=== PATIENT | female | born 1995 | race Caucasian/White ===

== ENCOUNTER 2017-07-12 19:45 | Emergency (ER) | payer SELFPAY ==
[~2017-07-12 19:45] MED LIST: ISOVUE-370 76%-LOCM 1 ML ONE
[2017-07-12 20:32] LABS: Bilirubin Small (Negative); Blood, Urine Trace (Negative); Clarity CLEAR (Clear); Glucose, Urine (Dipstick) Negative (Negative); Leukocyte Small (Negative); Nitrite Negative (Negative); Protein, Urine (Dipstick) Trace mg/dL (Neg-Trace); Specific Gravity, Urine 1.026 (1.002-1.036)
[2017-07-12 20:33] LABS: Bacteria/HPF 1+ HPF (None Seen); Pathc Cast-AUWi Flag 0.81 (0-2.49); Pregnancy Test - Urine (BHCG) Negative (Negative); Pregu Control Background? CLEAR/WHITE (CLR/WHITE); Pregu Control Bar Appear? YES (CONTROL BAR); Specific Gravity 1.026 (1.002-1.036); Squamous Epithelial 0-3 HPF (0-3); WBC/HPF 21-50 HPF (0-3)
[2017-07-12 20:44] LABS: Hyaline Casts/LPF 0-3 HYALINE CAST LPF (0-3 Hyaline); RBC/HPF 0-3 HPF (0-3)
[2017-07-12] MEDS ORDERED: cefTRIAXone\\ROCEPHIN 2 GM in Sodium Chloride 0.9% 100 ML IVPB SCH (21:00)
[2017-07-12 21:19] LABS: #Lymphocytes 0.9 thou/uL (1.20-3.40); #Monocytes 0.6 thou/uL (0.11-0.59); #Neutrophils 5.7 thou/uL (1.40-6.50); %Basophils 0.4 % (0.0-1.0); %Eosinophils 0.5 % (0.0-10.0); %Lymphocytes 12.2 % (21.0-51.0); %Monocytes 7.7 % (0.0-10.0); %Neutrophils 79.2 % (42.0-75.0); Hemoglobin 11.3 g/dL (12.0-16.0); Mean Corpuscular HGB CONC 31.9 g/dL (32.0-36.0); Mean Corpuscular Hemoglobin 24.9 pg (27.0-31.0); Mean Corpuscular Volume 78.1 fl (81.0-99.0); Mean Platelet Volume 8.3 fL (7.4-10.4); Platelet Count 267 thou/uL (130-400); RBC Distribution Width 14.7 % (11.5-14.5); Red Blood Cell (RBC) Count 4.53 mill/uL (4.20-5.40); White Blood Cell (WBC) Count 7.1 thou/uL (4.8-10.8)
--- NOTE | 2017-07-12 21:36 | CT ---
CT ABDOMEN AND PELVIS WITH CONTRAST 07/12/17 HISTORY: Fever and back pain. Urinary tract infection. COMPARISON: None. FINDINGS: Lung bases are clear. No pericardial effusion. Liver, gallbladder, spleen, and pancreas are all unrem arkable. Simple cyst inferior pole right kidney. There is some multifocal faint peripheral areas of hypoenhan cement of the right kidney extending to the cortex including medulla. This is not seen to involve the left kidney. Aortoiliac contour is normal. Left adnexal cyst is present. Small volume free fluid in the pelvis. The appendix is visualized and is normal. No dilated loops of large or small bowel. Skeleton is unremarkable. IMPRESSION: 1. Some faint areas of hypoperfusion in the right kidney suggestive of pyelonephritis. Followup recommended. 2. Normal appendix. POS: [facility]
[2017-07-12 22:01] LABS: Albumin 4.7 g/dL (3.5-5.0)
[2017-07-12 22:03] LABS: Calcium 10.2 mg/dL (7.8-10.44); Chloride 100 mmol/L (98-107); Potassium 3.7 mmol/L (3.5-5.1); Sodium 136 mmol/L (136-145)
[2017-07-12 22:04] LABS: Globulin 4.2 g/dL (2.4-3.5); Glucose 94 mg/dL (70-105); Protein, Total 8.9 g/dL (6.0-8.3)
[2017-07-12 22:05] LABS: Anion Gap 15 mmol/L (10-20); Carbon Dioxide 25 mmol/L (22-29)
[2017-07-12 22:06] LABS: Bilirubin, Total 0.4 mg/dL (0.2-1.2)
[2017-07-12 22:07] LABS: Alkaline Phosphatase 102 U/L (40-150); Calc. Creatinine Clearance 0 mL/min (70-130); Estimated GFR-MDRD Greater than 90
[2017-07-12 22:08] LABS: BUN (Urea Nitrogen) 12 mg/dL (7.0-18.7)
[2017-07-12 22:09] LABS: AST (SGOT) 27 U/L (5-34)
[2017-07-12 22:10] LABS: ALT (SGPT) 30 U/L (8-55); Lipase 8 U/L (8-78)
[2017-07-12] MEDS ORDERED: Ketorolac Tromethamine 30 MG/ML VIAL ONE (22:13)
== END 2017-07-12 23:05 | disposition home or self-care (01) ==
LOC: ERS 19:45
DX: N12 Tubulo-interstitial nephritis, not specified as acute or chronic (principal); E05.90 Thyrotoxicosis, unspecified without thyrotoxic crisis or storm
CPT/HCPCS: 74177; 80053; 81003; 81015; 81025; 83605; 83690; 85025; 87040; 96361; 96365; 96375; J0696; J1885; J7050

== ENCOUNTER 2018-06-19 08:47 | Outpatient (CLI) | payer MEDICAID ==
--- NOTE | 2018-06-19 11:02 | ULT ---
PELVIC ULTRASOUND INCLUDING TRANABDOMINAL AND VASCULAR DUPLEX WITH COLOR AND SPECTRAL DOPPLER IMAGING : No transvaginal evaluation performed. History: 23-year-old female with abnormal uterine bleeding. FINDINGS: The uterus measures 8.3 x 3.4 x 4.5 cm with a 0.5 cm endometrium. The right ovary measures 2.4 x 1.9 x 1.7 cm. Left ovary 3.0 x 2.7 x 1.6 cm. No abscess or abnormal fluid collections. No intra or extra uterine mass. Vascular flow is documented to both ovaries. No evidence for ovarian torsion. IMPRESSION: Unremarkable pelvic ultrasound. POS: [facility]
== END 2018-06-19 08:48 | disposition home or self-care (01) ==
LOC: ULT 08:47
PROVIDERS: ATTEND Family Medicine
DX: N93.9 Abnormal uterine and vaginal bleeding, unspecified (principal)
CPT/HCPCS: 76856; 93976

== ENCOUNTER 2019-03-19 14:36 | Emergency (ER) | payer MEDICAID, SELFPAY ==
--- NOTE | 2019-03-19 15:06 | RAD ---
XR Chest Pa Lat STANDARD HISTORY: Chest pain COMPARISON: 05/28/1915 FINDINGS: The heart size is normal. The lungs are well expanded without focal areas of consolidation, pneumothorax or pleural effusions. IMPRESSION: No radiographic evidence of acute cardiopulmonary process.
[2019-03-19] MEDS ORDERED: Acetaminophen 500 MG TAB ONE (15:46)
--- NOTE | 2019-03-21 12:12 | EKG ---
Test Reason : Blood Pressure : / mmHG Vent. Rate : 078 BPM Atrial Rate : 078 BPM P-R Int : 136 ms QRS Dur : 072 ms QT Int : 374 ms P-R-T Axes : 036 049 037 degrees QTc Int : 426 ms Normal sinus rhythm Normal ECG Confirmed by MATHIEU VILLATORO D.O. ([id number]), purchasing expeditor [employer]IOJAS ([id number] on 03/21/2019 12:11:27 PM Referred By: Confirmed By:MATHIEU VILLATORO D.O.
== END 2019-03-19 16:47 | disposition home or self-care (01) ==
LOC: ERS 14:36
DX: R07.9 Chest pain, unspecified (principal); F17.210 Nicotine dependence, cigarettes, uncomplicated
CPT/HCPCS: 71046; 93005